=== PATIENT | male | born 1980 | race Caucasian/White ===

== ENCOUNTER 2016-10-05 04:38 | Emergency (ER) | payer BC, OTHER ==
[~2016-10-05] VITALS: Ht 170.2 cm; Wt 73.0 kg
[~2016-10-05 04:38] MED LIST: ADDE20 PO; PYRI200T4 PO
[2016-10-05 04:45] VITALS: BP 128/71; PULSE 87; RESP 20; TEMP 98.3; O2SAT 97
[2016-10-05 05:01] VITALS: BP 119/85; PULSE 90; RESP 20; O2SAT 97
[2016-10-05] MEDS ORDERED: ADDE20 PO (05:11)
[2016-10-05] MEDS ORDERED: ZYRT10CA PO (05:11)
[2016-10-05] MEDS ORDERED: KETOROLAC TROMETHAMINE 60 MG/2 ML (IM) VIAL IM ONE (05:30)
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
[2016-10-05] MEDS ORDERED: IBUP800T23 PO (06:25)
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
[2016-10-05 06:30] VITALS: BP 123/76
[2016-10-05 06:35] VITALS: RESP 18
== END 2016-10-05 06:38 | disposition home or self-care (01) ==
LOC: PHED 04:38
DX: S20.211A Contusion of right front wall of thorax, initial encounter (principal); J45.909 Unspecified asthma, uncomplicated; F17.200 Nicotine dependence, unspecified, uncomplicated; Y04.0XXA Assault by unarmed brawl or fight, initial encounter
CPT/HCPCS: 71101; 96372; 99283; J1885

== ENCOUNTER 2017-02-28 22:56 | Emergency (ER) | payer BC ==
[~2017-02-28] VITALS: Ht 172.7 cm; Wt 70.8 kg
[~2017-02-28 22:56] MED LIST changes: +IBUP800T23 PO; -PYRI200T4 PO; +ZYRT10CA PO
[2017-02-28 23:13] VITALS: BP 136/85; PULSE 90; RESP 16; TEMP 98.8; O2SAT 99
[2017-03-01] MEDS ORDERED: CETI10CH CHEW (00:01)
[2017-03-01] MEDS ORDERED: TETANUS/DIPHTHERIA TOXOID ADULT 0.5 ML VIAL IM ONE (00:15)
[2017-03-01] MEDS ORDERED: LIDOCAINE HCL 1% PF 30 ML VIAL INFIL ONE (00:15)
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
[2017-03-01] MEDS ORDERED: BACT800T5 PO (01:27)
[2017-03-01] MEDS ORDERED: SULFAMETHOXAZOLE-TRIMETHOPRIM DS 800-160 MG TAB PO ONE (01:30)
[2017-03-01 01:50] VITALS: BP 136/78
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
== END 2017-03-01 01:50 | disposition home or self-care (01) ==
LOC: PHED 22:56
DX: S51.812A Laceration without foreign body of left forearm, initial encounter (principal); F17.200 Nicotine dependence, unspecified, uncomplicated; Z23 Encounter for immunization; Z87.09 Personal history of other diseases of the respiratory system; Z86.59 Personal history of other mental and behavioral disorders; Z87.442 Personal history of urinary calculi; W27.8XXA Contact with other nonpowered hand tool, initial encounter
CPT/HCPCS: 12032; 73090; 90471; 90714

== ENCOUNTER 2017-03-12 09:45 | Emergency (ER) | payer BC ==
[~2017-03-12] VITALS: Ht 170.2 cm; Wt 70.3 kg
[~2017-03-12 09:45] MED LIST changes: +BACT800T5 PO; +CETI10CH CHEW; -IBUP800T23 PO; -ZYRT10CA PO
[2017-03-12 09:47] VITALS: BP 127/66; PULSE 72; RESP 18; TEMP 98.3; O2SAT 99
--- NOTE | 2017-03-12 09:59 | PD ---
HPI Chief Complaint: Wound/Suture/Staple Re-Check Time Seen by Provider: 09:57 Travel History International Travel<30 days: No Contact w/Intl Traveler<30days: No Traveled to known affect area: No History of Present Illness HPI Patient 36-year-old male presents emergency department for suture removal. Had 11 stitches placed superficially and some deep stitches placed on February 28. States healing well, no discharge no erythema no fevers no dehiscence. PFSH Past Medical History Asthma: Yes Diminished Hearing: No Kidney Stones: Yes Respiratory: Yes (asthma) Immunizations Current: Yes ?: Not Past Surgical History Appendectomy: Yes Social History Alcohol Use: No Tobacco Use: Yes (2 ppd) Substance Use: No Allergies-Medications (Allergen,Severity, Reaction): Coded Allergies: amoxicillin (Unverified Allergy, Severe, swelling, 03/12/17) clavulanic acid (Unverified Allergy, Severe, swelling, 03/12/17) penicillin G (Unverified Allergy, Mild, Hives, 03/12/17) Reported Meds & Prescriptions Reported Meds & Active Scripts Active Bactrim DS (Sulfamethoxazole-Trimethoprim) 800-160 Mg Tab 1 Tab PO BID Reported Cetirizine (Cetirizine HCl) 10 Mg Chew 10 Mg CHEW DAILY Adderall (Amphetamine-Dextroamphetamine) 20 Mg Tab 20 Mg PO DAILY Avoid late evening doses. Space doses at least 4 to 6 hours if more than once/day dosing. Review of Systems Except as stated in HPI: all other systems reviewed are Neg Physical Exam Narrative GENERAL: Well-nourished, well-developed patient. SKIN: Focused skin assessment warm/dry. 11 stitches simple interrupted fashion seen the patient's left forearm on the ulnar volar aspect. Healing well, no signs of infection. HEAD: Normocephalic. EYES: No scleral icterus. No injection or drainage. NECK: Supple, trachea midline. No JVD or lymphadenopathy. CARDIOVASCULAR: Regular rate and rhythm without murmurs, gallops, or rubs. RESPIRATORY: Breath sounds equal bilaterally. No accessory muscle use. GASTROINTESTINAL: Abdomen soft, non-tender, nondistended. MUSCULOSKELETAL: No cyanosis, or edema. BACK: Nontender without obvious deformity. No CVA tenderness. Data Data Last Documented VS Vital Signs Date Time Temp Pulse Resp B/P (MAP) Pulse Ox O2 Delivery O2 Flow Rate FiO2 03/12/17 09:47 98.3 72 18 127/66 (86) 99 MDM Medical Decision Making Medical Screen Exam Complete: Yes Emergency Medical Condition: Yes Differential Diagnosis Count for suture removal, laceration, cellulitis excluded clinically. Narrative Course Patient roomed emergency department, wound is healing well. 11 sutures removed from left forearm. Discussed ongoing wound care and dehiscence prevention. He stable for discharge. Diagnosis Primary Impression: Visit for suture removal Patient Instructions: General Instructions, Laceration (DC) Disposition: 01 DISCHARGE HOME Condition: Stable Jose Phan MD Mar 12, 2017 09:59
== END 2017-03-12 10:10 | disposition home or self-care (01) ==
LOC: PHED 09:45
DX: S51.812D Laceration without foreign body of left forearm, subsequent encounter (principal); Z48.02 Encounter for removal of sutures; X58.XXXD Exposure to other specified factors, subsequent encounter
CPT/HCPCS: 99281